=== PATIENT | male | born 1985 | race Hispanic/Latino ===

== ENCOUNTER 2017-12-07 22:05 | Emergency (ER) | payer MEDICARE ==
[2017-12-07 23:14] LABS: BASOPHILS % (AUTO) 0.6 % (0.0-5.0); EOSINOPHILS % (AUTO) 2.2 % (0.0-8.0); HEMATOCRIT 38.6 % (42-54); LYMPHOCYTES % (AUTO) 28.9 % (21.0-51.0); MEAN CORPUSCULAR HEMOGLOBIN 30.2 pg (27.0-33.0); MEAN CORPUSCULAR HGB CONC 33.3 g/dL (32.0-36.0); MEAN CORPUSCULAR VOLUME 90.4 fL (79-99); MONOCYTES % (AUTO) 8.4 % (3.0-13.0); NEUTROPHILS % (AUTO) 59.9 % (40.0-77.0); PLATELET COUNT (AUTO) 168 K/uL (130-400); RED BLOOD CELL COUNT(AUTO) 4.27 MIL/uL (4.50-6.20); RED CELL DISTRIBUTION WIDTH 13.8 % (11.0-15.5); WHITE BLOOD COUNT (AUTO) 5.7 K/uL (4.8-10.8)
[2017-12-07 23:22] LABS: CREATININE 1.3 mg/dL (0.5-1.5); POTASSIUM 4.5 mmol/L (3.5-5.1)
[2017-12-07] MEDS ORDERED: HYDROCODONE/ACETAMINOPHEN 10/325 MG TAB ONE (23:23)
[2017-12-07 23:27] LABS: ALBUMIN 3.5 g/dL (3.5-5.0); BILIRUBIN,TOTAL 0.5 mg/dL (0.2-1.0); TOTAL PROTEIN, SERUM 7.7 g/dL (6.0-8.3)
[2017-12-07 23:58] LABS: AMYLASE 32 U/L (25-115); LIPASE 82 U/L (114-286)
[2017-12-08] MEDS ORDERED: LIDOCAINE 5% TOPICAL PATCH TP ONE (01:24)
[2017-12-08] MEDS ORDERED: ORPHENADRINE CITRATE 30 MG/ML ML ONE (02:50)
== END 2017-12-08 03:17 | disposition home or self-care (01) ==
LOC: EDH 22:05
DX: M54.6 Pain in thoracic spine (principal); G62.9 Polyneuropathy, unspecified; H54.7 Unspecified visual loss; Z94.83 Pancreas transplant status; Z94.0 Kidney transplant status; Z88.8 Allergy status to other drugs, medicaments and biological substances
CPT/HCPCS: 36415; 71046; 71250; 80053; 82150; 83690; 85025; 93005; 96372; 99285; J2360

== ENCOUNTER → 2019-02-02 | Outpatient (CLI) | payer MEDICARE ==
[2019-02-02 13:12] VITALS: BP 132/87
== END | disposition home or self-care (01) ==
LOC: WHH 09:00
PROVIDERS: ATTEND Surgery
DX: T81.89XA Other complications of procedures, not elsewhere classified, initial encounter (principal); E10.621 Type 1 diabetes mellitus with foot ulcer; L89.610 Pressure ulcer of right heel, unstageable; L97.411 Non-pressure chronic ulcer of right heel and midfoot limited to breakdown of skin; G62.9 Polyneuropathy, unspecified; Z94.0 Kidney transplant status; Z94.83 Pancreas transplant status; Z88.8 Allergy status to other drugs, medicaments and biological substances; Y83.8 Other surgical procedures as the cause of abnormal reaction of the patient, or of later complication, without mention of misadventure at the time of the procedure; Y92.89 Other specified places as the place of occurrence of the external cause
CPT/HCPCS: G0463

== ENCOUNTER → 2019-02-09 | Outpatient (CLI) | payer MEDICARE ==
[2019-02-09 14:11] VITALS: BP 115/76
== END | disposition home or self-care (01) ==
LOC: WHH 08:50
PROVIDERS: ATTEND Family Medicine
DX: T81.89XD Other complications of procedures, not elsewhere classified, subsequent encounter (principal); E10.621 Type 1 diabetes mellitus with foot ulcer; L89.610 Pressure ulcer of right heel, unstageable; L97.412 Non-pressure chronic ulcer of right heel and midfoot with fat layer exposed; G62.9 Polyneuropathy, unspecified; Z94.0 Kidney transplant status; Z94.83 Pancreas transplant status; Z88.8 Allergy status to other drugs, medicaments and biological substances; Y83.8 Other surgical procedures as the cause of abnormal reaction of the patient, or of later complication, without mention of misadventure at the time of the procedure
CPT/HCPCS: 11042; A6021; A6209

== ENCOUNTER → 2019-02-16 | Outpatient (CLI) | payer MEDICARE ==
[~2019-02-16] MED LIST: LIDOCAINE HCL 2% JELLY 5 ML TP ONE
[2019-02-16 11:14] VITALS: BP 152/94
== END | disposition home or self-care (01) ==
LOC: WHH 08:50
PROVIDERS: ATTEND Family Medicine
DX: T81.89XD Other complications of procedures, not elsewhere classified, subsequent encounter (principal); E10.621 Type 1 diabetes mellitus with foot ulcer; L89.610 Pressure ulcer of right heel, unstageable; L97.411 Non-pressure chronic ulcer of right heel and midfoot limited to breakdown of skin; E10.42 Type 1 diabetes mellitus with diabetic polyneuropathy; Z94.0 Kidney transplant status; Z94.83 Pancreas transplant status; Y83.8 Other surgical procedures as the cause of abnormal reaction of the patient, or of later complication, without mention of misadventure at the time of the procedure
CPT/HCPCS: 11042; A6022; A6209

== ENCOUNTER → 2019-02-23 | Outpatient (CLI) | payer MEDICARE ==
[~2019-02-23] MED LIST changes: -LIDOCAINE HCL 2% JELLY 5 ML TP ONE; +LIDOCAINE/PRILOCAINE CREAM 5GM TUBE TP ONE
[2019-02-23 13:24] VITALS: BP 100/67
== END | disposition home or self-care (01) ==
LOC: WHH 09:00
PROVIDERS: ATTEND Family Medicine
DX: T81.89XD Other complications of procedures, not elsewhere classified, subsequent encounter (principal); E10.621 Type 1 diabetes mellitus with foot ulcer; L89.610 Pressure ulcer of right heel, unstageable; L97.412 Non-pressure chronic ulcer of right heel and midfoot with fat layer exposed; E10.42 Type 1 diabetes mellitus with diabetic polyneuropathy; Z94.0 Kidney transplant status; Z94.83 Pancreas transplant status; Y83.8 Other surgical procedures as the cause of abnormal reaction of the patient, or of later complication, without mention of misadventure at the time of the procedure
CPT/HCPCS: 11042; A6022; J3490

== ENCOUNTER → 2019-03-02 | Outpatient (CLI) | payer MEDICARE ==
[2019-03-02 12:02] VITALS: BP 113/78
== END | disposition home or self-care (01) ==
LOC: WHH 08:45
PROVIDERS: ATTEND Surgery
DX: T81.89XD Other complications of procedures, not elsewhere classified, subsequent encounter (principal); E10.621 Type 1 diabetes mellitus with foot ulcer; L89.610 Pressure ulcer of right heel, unstageable; L97.412 Non-pressure chronic ulcer of right heel and midfoot with fat layer exposed; E10.42 Type 1 diabetes mellitus with diabetic polyneuropathy; Z94.0 Kidney transplant status; Z94.83 Pancreas transplant status; Z88.9 Allergy status to unspecified drugs, medicaments and biological substances; Y83.8 Other surgical procedures as the cause of abnormal reaction of the patient, or of later complication, without mention of misadventure at the time of the procedure
CPT/HCPCS: 11042; A6022; 97597

== ENCOUNTER → 2019-03-09 | Outpatient (CLI) | payer MEDICARE ==
[2019-03-09 15:08] VITALS: BP 140/90
== END | disposition home or self-care (01) ==
LOC: WHH 09:00
PROVIDERS: ATTEND Surgery
DX: T81.89XD Other complications of procedures, not elsewhere classified, subsequent encounter (principal); E10.621 Type 1 diabetes mellitus with foot ulcer; L89.613 Pressure ulcer of right heel, stage 3; L97.411 Non-pressure chronic ulcer of right heel and midfoot limited to breakdown of skin; E10.42 Type 1 diabetes mellitus with diabetic polyneuropathy; Z94.0 Kidney transplant status; Z88.9 Allergy status to unspecified drugs, medicaments and biological substances; Y83.8 Other surgical procedures as the cause of abnormal reaction of the patient, or of later complication, without mention of misadventure at the time of the procedure
CPT/HCPCS: A6022; G0463

== ENCOUNTER 2019-03-23 09:00 | Outpatient (CLI) | payer MEDICARE ==
[2019-03-23 13:26] VITALS: BP 117/82
== END 2019-03-23 17:00 | disposition home or self-care (01) ==
LOC: WHH 09:00
PROVIDERS: ATTEND Family Medicine
DX: E10.621 Type 1 diabetes mellitus with foot ulcer (principal); L89.612 Pressure ulcer of right heel, stage 2; L97.418 Non-pressure chronic ulcer of right heel and midfoot with other specified severity; E10.22 Type 1 diabetes mellitus with diabetic chronic kidney disease; Z94.0 Kidney transplant status; Z88.9 Allergy status to unspecified drugs, medicaments and biological substances; Y83.8 Other surgical procedures as the cause of abnormal reaction of the patient, or of later complication, without mention of misadventure at the time of the procedure
CPT/HCPCS: 97597